=== PATIENT | male | born 1975 | race Caucasian/White ===

== ENCOUNTER 2018-03-21 21:43 | Emergency (ER) | payer OTHER ==
[2018-03-21] MEDS ORDERED: IBUPROFEN 600 MG TABLET (FP) PO ONE ×2 (21:45→21:56)
[2018-03-21 21:46] VITALS: BP 125/66; PULSE 102; TEMP 99.8; BMI 26.2
--- NOTE | 2018-03-21 21:48 | PDOC ---
Rapid Medical Evaluation Chief Complaint: Cold Symptoms Time Seen by Provider: 03/21/18 21:43 Medical Evaluation: Allergies Allergy/AdvReac Type Severity Reaction Status Date / Time iodine [Iodine] Allergy Swelling Verified 01/08/13 11:43 Penicillins Allergy Hives Verified 01/08/13 11:43 03/21/18 21:44 43 year old male c/o nasal congestions, chills, bodyache and feels feverish. c/ o throat pain PE: patient alert ox3. mild erythema A: rapid strep ibuprofen patient to fast track for further management of care. Discharge Disposition - Diagnosis Throat pain in adult URI (upper respiratory infection) Qualifiers: URI type: unspecified URI Qualified Code(s): J06.9 - Acute upper respiratory infection, unspecified - Referrals - Patient Instructions - Post Discharge Activity
--- NOTE | 2018-03-21 22:07 | PDOC ---
History of Present Illness - General Chief Complaint: Cold Symptoms Stated Complaint: COLD SYMPTOMS Time Seen by Provider: 03/21/18 21:43 History Source: Patient Exam Limitations: No Limitations - History of Present Illness Initial Comments: 03/21/18 22:03 HISTORY OF PRESENT ILLNESS: 43-year-old male with past medical history of depression and anxiety presents emergency Department with 4 days of subjective fevers, myalgias, nasal congestion, postnasal drip, intermittent headaches. Patient states symptoms got worse starting on 03/20. Patient denies chest pain, shortness of breath, cough, abdominal pain, nausea, vomiting. No recent travel or sick contacts. PAST MEDICAL HISTORY: Denies past medical history SURGICAL HISTORY: Denies ALLERGIES: No known drug allergies REVIEW OF SYSTEMS General/Constitutional: Endorses fever and chills. Denies weakness, weight change. HEENT: Denies change in vision. Denies ear pain or discharge. Denies sore throat. Cardiovascular: Denies chest pain or shortness of breath. Respiratory: Denies cough, wheezing, or hemoptysis. Gastrointestinal: Denies nausea, vomiting, diarrhea or constipation. Denies rectal bleeding. Genitourinary: Denies dysuria, frequency, or change in urination. Musculoskeletal: Reports muscleaches. Denies neck or back pain. Skin and breasts: Denies rash or easy bruising. Neurologic: Intermittent global headache. Denies vertigo, loss of consciousness , or loss of sensation. Psychiatric: Denies depression or anxiety. Endocrine: Denies increased thirst. Denies abnormal weight change. Hematologic/Lymphatic: Denies anemia, easy bleeding, or history of blood clots. Allergic/Immunologic: Denies hives or skin allergy. Denies latex allergy. PHYSICAL EXAM General Appearance: Well-appearing, appropriately dressed. No apparent distress , no intoxication. HEENT: EOMI, PERRLA, normal ENT inspection, normal voice. No conjunctival pallor. No photophobia, scleral icterus. Cobblestoning in the posterior oropharynx. No tonsillar erythema present. no exudates present. TMs with retractions noted bilaterally Neck: Supple. Trachea midline. No tenderness, rigidity, carotid bruit, stridor , lymphadenopathy, or thyromegaly. Respiratory/Chest: Lungs CTAB. No shortness of breath, chest tenderness, respiratory distress, accessory muscle use. No crackles, rales, rhonchi, stridor , wheezing, dullness Cardiovascular: RRR. S1, S2. No JVD, murmur, bradycardia, tachycardia. Vascular Pulses: Dorsalis-Pedis (R): 2+, Dorsalis-Pedis (L): 2+ Gastrointestinal/Abdominal: Normal bowel sounds. Abdomen soft, non-distended. No tenderness or rebound tenderness. No organomegaly, pulsatile mass, guarding, hernia, hepatomegaly, splenomegaly. Lymphatic: No adenopathy, tenderness. Musculoskeletal/Extremities: Normal inspection. FROM of all extremities, normal capillary refill. Pelvis Stable. No CVA tenderness. No tenderness to extremities, pedal edema, swelling, erythema or deformity. Integumentary: Appropriate color, dry, warm. No cyanosis, erythema, jaundice or rash Neurologic: venetian blind mechanic II-XII intact. Fully oriented, alert. Appropriate mood/affect. Motor strength 5/5. No appreciable EOM palsy, facial droop or sensory deficit. Past History - Past Medical History Allergies/Adverse Reactions: Allergies Allergy/AdvReac Type Severity Reaction Status Date / Time iodine [Iodine] Allergy Swelling Verified 03/21/18 21:46 Penicillins Allergy Hives Verified 03/21/18 21:46 Home Medications: Ambulatory Orders No Home Medications 0 dose .ROUTE UTDICT 01/08/13 COPD: No - Surgical History Appendectomy: Yes - Suicide/Smoking/Psychosocial Hx Smoking Status: No Smoking History: Never smoked Number of Cigarettes Smoked Daily: 0 *Physical Exam - Vital Signs Last Vital Signs Temp Pulse Resp BP Pulse Ox 99.8 F H 102 H 18 125/66 95 03/21/18 21:44 03/21/18 21:44 03/21/18 21:44 03/21/18 21:44 03/21/18 21:44 ED Treatment Course - Medications Given in the ED: ED Medications Discontinued Medications Generic Name Dose Route Start Last Admin Trade Name Freq PRN Reason Stop Dose Admin Ibuprofen 600 mg 03/21/18 21:45 03/21/18 21:57 Motrin - PO 03/21/18 21:46 600 mg ONCE ONE Administration Medical Decision Making - Medical Decision Making 03/21/18 22:06 A/P: 43-year-old male with 4 days of upper respiratory type symptoms TMs with retractions bilaterally Cobblestoning in the posterior oropharynx No sinus tenderness No cervical lymphadenopathy noted Lungs clear to auscultation bilaterally Patient symptoms consistent with an upper respiratory infection but given absence of cough I will send a rapid strep test to evaluate for bacterial etiology. 03/21/18 22:23 Rapid strep testing is negative. I will discharge the patient home with symptomatic treatment. I discussed the physical exam findings, ancillary test results and final diagnoses with the patient. I answered all of the patient's questions. The patient was satisfied with the care received and felt comfortable with the discharge plan and treatment plan. The patient will call their primary care physician within 24 hours to arrange follow-up and will return to the Emergency Department with any new, persistent or worsening symptoms. *DC/Admit/Observation/Transfer Diagnosis at time of Disposition: URI (upper respiratory infection) Qualifiers: URI type: unspecified URI Qualified Code(s): J06.9 - Acute upper respiratory infection, unspecified - Discharge Dispostion Disposition: HOME Condition at time of disposition: Stable Decision to Admit order: No - Referrals Referrals: Tom Meyers MD [Primary Care Provider] - - Patient Instructions Printed Discharge Instructions: DI for Viral Upper Respiratory Infection -- Adult Additional Instructions: Rest, drink lots of fluids: Teas, water, soups, Pedialyte Saltwater gargles Steamy showers/seem to face break up mucus Avoid contact with others until fevers and cough resolved Lots of handwashing and good hygiene Continue [id number] medications for symptomatic relief Tylenol or Motrin for fever and pain Followup with private physician in one to 2 days as needed Return to emergency department for worsened symptoms, fevers, dehydration - Post Discharge Activity Forms/Work/School Notes: Back to Work
== END 2018-03-21 22:28 | disposition home or self-care (01) ==
LOC: JERFT 21:43
DX: J06.9 Acute upper respiratory infection, unspecified (principal); F41.8 Other specified anxiety disorders
CPT/HCPCS: 87070; 87430; 99281-25

== ENCOUNTER 2018-06-15 21:43 | Emergency (ER) | payer OTHER ==
[2018-06-15 22:00] VITALS: BP 124/75; PULSE 97; TEMP 99.8; BMI 25.8
--- NOTE | 2018-06-15 23:51 | PDOC ---
History of Present Illness - General Chief Complaint: Cold Symptoms Stated Complaint: FLU SYMPTOMS Time Seen by Provider: 06/15/18 22:55 History Source: Patient Exam Limitations: No Limitations - History of Present Illness Initial Comments: 06/15/18 23:48 Patient is a 43 year old male history of depression, anxiety, appendectomy here with complaints of URI symptoms which started 3 days ago. Patient states he had like cold symptoms initally but today symptoms worsened. Now feels malaise, body ache, cough, chest burning and forehead feeling hot. Did not obtain shot this year. PMD: Dr. Jeffries PMHX: as above PSOCHx: neg cig, etoh, durgs ALL: PCN, Iodine. GENERAL/CONSTITUTIONAL: (+) fever or chills. (+) weakness. No weight change.] HEAD, EYES, EARS, NOSE AND THROAT: [No change in vision. No ear pain or discharge. (+) sore throat.] CARDIOVASCULAR: [No chest pain or shortness of breath.] RESPIRATORY: (+) cough, wheezing, or hemoptysis.] GASTROINTESTINAL: [No nausea, vomiting, diarrhea or constipation. No rectal bleeding.] GENITOURINARY: [No dysuria, frequency, or change in urination.] MUSCULOSKELETAL: (+) joint or muscle pain. No neck or back pain.] SKIN AND BREASTS: [No rash or easy bruising.] NEUROLOGIC: [No headache, vertigo, loss of consciousness, or loss of sensation.] PSYCHIATRIC: [No depression or anxiety.] ENDOCRINE: [No increased thirst. No abnormal weight change.] HEMATOLOGIC/LYMPHATIC: [No anemia, easy bleeding, or history of blood clots.] ALLERGIC/IMMUNOLOGIC: [No hives or skin allergy. No latex allergy.] GENERAL: [The patient is awake, alert, and fully oriented, in mild distress.] HEAD: [Normal with no signs of trauma.] EYES: [Pupils equal, round and reactive to light, extraocular movements intact, sclera anicteric, conjunctiva clear.] ENT: [Ears normal, nares patent, oropharynx clear without exudates. Moist mucous membranes.] NECK: [Normal range of motion, supple without lymphadenopathy, JVD, or masses.] LUNGS: [Breath sounds equal, clear to auscultation bilaterally. No wheezes, and no crackles.] HEART: [Regular rate and rhythm, normal S1 and S2 without murmur, rub.] ABDOMEN: [Soft, nontender, normoactive bowel sounds. No guarding, no rebound. No masses.] EXTREMITIES: [Normal range of motion, no edema. No clubbing or cyanosis. No cords, erythema, or tenderness.] NEUROLOGICAL: [Cranial nerves II through XII grossly intact. Normal speech, normal gait.] PSYCH: [Normal mood, normal affect.] SKIN: [Warm, Dry, normal turgor, no rashes or lesions noted.] Past History - Past Medical History Allergies/Adverse Reactions: Allergies Allergy/AdvReac Type Severity Reaction Status Date / Time iodine [Iodine] Allergy Swelling Verified 06/15/18 22:00 Penicillins Allergy Hives Verified 06/15/18 22:00 Home Medications: Ambulatory Orders No Home Medications 0 dose .ROUTE UTDICT 01/08/13 Ibuprofen [Motrin -] 600 mg PO QID #120 tablet 06/16/18 Oseltamivir Phosphate [Tamiflu] 75 mg PO BID #9 capsule 06/16/18 COPD: No - Surgical History Appendectomy: Yes - Suicide/Smoking/Psychosocial Hx Smoking Status: No Smoking History: Never smoked Have you smoked in the past 12 months: No Number of Cigarettes Smoked Daily: 0 Information on smoking cessation initiated: No Hx Alcohol Use: No Drug/Substance Use Hx: No *Physical Exam - Vital Signs Last Vital Signs Temp Pulse Resp BP Pulse Ox 99.8 F H 97 H 16 124/75 100 06/15/18 21:58 06/15/18 21:58 06/15/18 21:58 06/15/18 21:58 06/15/18 21:58 Moderate Sedation - Procedure Monitoring Vital Signs: Procedure Monitoring Vital Signs Temperature 99.8 F H 06/15/18 21:58 Pulse Rate 97 H 06/15/18 21:58 Respiratory Rate 16 06/15/18 21:58 Blood Pressure 124/75 06/15/18 21:58 O2 Sat by Pulse Oximetry (%) 100 06/15/18 21:58 Medical Decision Making - Medical Decision Making 06/15/18 23:48 Patient is a 43 year old male history of depression, anxiety, appendectomy here with complaints of URI symptoms which started 3 days ago. Patient states he had like cold symptoms initally but today symptoms worsened. Now feels malaise, body ache, cough, chest burning and forehead feeling hot. Did not obtain shot this year. Patient symptoms consistent with flulike illness we'll treat symptomatically. Chest x-ray rule out pneumonia. Flu swab Chest x-ray negative Laboratory Tests 06/15/18 23:10 Influenza A (Rapid) Positive A Influenza B (Rapid) Negative I discussed the physical exam findings, ancillary test results and final diagnoses with the patient. I answered all of the patient's questions. The patient was satisfied with the care received and felt comfortable with the discharge plan and treatment plan. The Patient agrees to follow up with the primary care physician within 24-72 hours. *DC/Admit/Observation/Transfer Diagnosis at time of Disposition: Influenza A - Discharge Dispostion Disposition: HOME Condition at time of disposition: Stable - Prescriptions Prescriptions: Ibuprofen [Motrin -] 600 mg PO QID #120 tablet Oseltamivir Phosphate [Tamiflu] 75 mg PO BID #9 capsule - Referrals Referrals: Tom Meyers MD [Primary Care Provider] - - Patient Instructions Printed Discharge Instructions: DI for Influenza -- Adult - Post Discharge Activity Forms/Work/School Notes: Back to Work
[2018-06-16] MEDS ORDERED: OSELTAMIVIR PHOSPHATE 75 MG CAPSULE PO ONE (00:09)
[2018-06-16] MEDS ORDERED: OSELTAMIVIR PHOSPHATE 75 MG CAPSULE ONE (00:13)
== END 2018-06-16 00:32 | disposition home or self-care (01) ==
LOC: JER 21:43 → JERFT 21:43 → JER 06-16 00:32
DX: J09.X2 Influenza due to identified novel influenza A virus with other respiratory manifestations (principal)
CPT/HCPCS: 71046-TC-FY; 87804; 99282-25

== ENCOUNTER 2018-06-22 16:13 | Emergency (ER) | payer OTHER ==
[2018-06-22 16:17] VITALS: BP 106/78; PULSE 100; TEMP 98.8; BMI 25.8
--- NOTE | 2018-06-22 17:05 | PDOC ---
History of Present Illness - General Chief Complaint: Respiratory Stated Complaint: COLD SYMPTOMS/URINATING BLOOD Time Seen by Provider: 06/22/18 16:46 History Source: Patient Exam Limitations: Clinical Condition - History of Present Illness Initial Comments: 06/22/18 16:59 Patient with history of anxiety and depression present with complaint of over one-week history of URI symptoms which improved and started again 2 days ago. Patient also reported 2 day history of blood and urine which has mildly improved today. Patient was seen over week ago URI symptoms and tested positive for influenza a. Patient was discharged home on Tamiflu which reported help with his symptoms but now have cough and runny nose and nasal congestion. Patient reported urinary frequency, burning with urination and bloody urine for the past 2 days. Patient denies fever, chills or back pains. Patient denies nausea or vomiting Timing/Duration: other (2 days) Past History - Past Medical History Allergies/Adverse Reactions: Allergies Allergy/AdvReac Type Severity Reaction Status Date / Time iodine [Iodine] Allergy Swelling Verified 06/15/18 22:00 Penicillins Allergy Hives Verified 06/22/18 16:17 Home Medications: Ambulatory Orders Benzonatate [Tessalon Pearls -] 100 mg PO TID PRN #21 capsule 06/22/18 Ciprofloxacin HCl [Cipro] 500 mg PO BID 5 Days #10 tablet 06/22/18 Ipratropium [place] 2 spray NS BID PRN #1 spray 06/22/18 Loratadine 10 mg PO DAILY #10 capsule 06/22/18 Phenazopyridine HCl [Pyridium -] 100 mg PO TID 2 Days #6 tablet 06/22/18 COPD: No - Surgical History Appendectomy: Yes - Immunization History Immunization Up to Date: Yes - Suicide/Smoking/Psychosocial Hx Smoking Status: No Smoking History: Never smoked Have you smoked in the past 12 months: No Number of Cigarettes Smoked Daily: 0 Hx Alcohol Use: No Drug/Substance Use Hx: No Review of Systems - Review of Systems Able to Perform ROS?: Yes Is the patient limited Moldovan proficient: No Constitutional: No: Chills, Fever, Malaise HEENTM: Yes: Symptoms Reported, See HPI, Nose Congestion. No: Eye Pain, Blurred Vision, Tearing, Recent change in vision, Double Vision, Cataracts, Ear Pain, Ocular Prothesis, Ear Discharge, Nose Pain, Tinnitus, Nose Bleeding, Hearing Loss, Throat Pain, Throat Swelling, Mouth Pain, Dental Problems, Difficulty Swallowing, Mouth Swelling, Other Respiratory: Yes: Symptoms reported, See HPI, Cough. No: Orthopnea, Shortness of Breath, SOB with Exertion, SOB at Rest, Stridor, Wheezing, Productive cough, Hemoptysis, Other Cardiac (ROS): No: Symptoms Reported, See HPI, Chest Pain, Edema, Irregular Heart Rate, Lightheadedness, Palpitations, Syncope, Chest Tightness, Other ABD/GI: No: Constipated, Diarrhea, Nausea, Vomiting : Yes: See HPI, Burning, Dysuria, Frequency, Hematuria, Urgency. No: Discharge, Testicular Pain Musculoskeletal: No: Back Pain All Other Systems: Reviewed and Negative *Physical Exam - Vital Signs Last Vital Signs Temp Pulse Resp BP Pulse Ox 98.8 F 100 H 18 106/78 99 06/22/18 16:14 06/22/18 16:14 06/22/18 16:14 06/22/18 16:14 06/22/18 16:14 - Physical Exam Comments: 06/22/18 17:03 GENERAL: Well developed, well nourished. Awake and alert. No acute distress. HEENT: Normocephalic, atraumatic. PERRLA, EOMI. No conjunctival pallor. Sclera are non-icteric. Moist mucous membranes. Oropharynx is clear. NECK: Supple. Full ROM. CARDIOVASCULAR: Regular rate and rhythm. No murmurs, rubs, or gallops. Distal pulses are 2+ and symmetric. PULMONARY: No evidence of respiratory distress. Lungs clear to auscultation bilaterally. No wheezing, rales or rhonchi. ABDOMINAL: Soft. Non-tender. Non-distended. No rebound or guarding. No organomegaly. Normoactive bowel sounds. MUSCULOSKELETAL Normal range of motion at all joints. EXTREMITIES: No cyanosis. No clubbing. No edema. SKIN: Warm and dry. Normal capillary refill. No rashes. No jaundice. NEUROLOGICAL: Alert, awake, appropriate. Gait is normal without ataxia. PSYCHIATRIC: Cooperative. Good eye contact. Appropriate mood General Appearance: Yes: Nourished, Appropriately Dressed. No: Apparent Distress Moderate Sedation - Procedure Monitoring Vital Signs: Procedure Monitoring Vital Signs Temperature 98.8 F 01/13/19 16:14 Pulse Rate 100 H 06/22/18 16:14 Respiratory Rate 18 06/22/18 16:14 Blood Pressure 106/78 06/22/18 16:14 O2 Sat by Pulse Oximetry (%) 99 06/22/18 16:14 Medical Decision Making - Medical Decision Making 06/22/18 17:03 Patient with no significant past medical history present with complaint of 2 day history of hematuria, urinary frequency and burning with urination and patient also reported history of URI symptoms which started a week ago and improved 4 days ago and started again 2 days ago. Lungs clear to auscultation bilateral on exam with no respiratory distress. Normal cardiac exam. No abdominal tenderness on exam. UA, urine culture and urine GC tests ordered. Treat based on UA results 06/22/18 17:36 UA shows leukocytes with WBC and hematuria. Patient will be treated for cystitis with cipro Abx and pyridium and tessalon perles and nasal spray for URI symptoms *DC/Admit/Observation/Transfer Diagnosis at time of Disposition: URI (upper respiratory infection) Qualifiers: URI type: unspecified URI Qualified Code(s): J06.9 - Acute upper respiratory infection, unspecified UTI (urinary tract infection) Qualifiers: Urinary tract infection type: acute cystitis Hematuria presence: with hematuria Qualified Code(s): N30.01 - Acute cystitis with hematuria Hematuria Qualifiers: Hematuria type: unspecified type Qualified Code(s): R31.9 - Hematuria, unspecified - Discharge Dispostion Disposition: HOME Condition at time of disposition: Stable Decision to Admit order: No - Prescriptions Prescriptions: Benzonatate [Tessalon Pearls -] 100 mg PO TID PRN #21 capsule PRN Reason: Cough Ciprofloxacin HCl [Cipro] 500 mg PO BID 5 Days #10 tablet Ipratropium [place] 2 spray NS BID PRN #1 spray PRN Reason: nasal congestion Loratadine 10 mg PO DAILY #10 capsule Phenazopyridine HCl [Pyridium -] 100 mg PO TID 2 Days #6 tablet - Referrals Referrals: Tom Meyers MD [Primary Care Provider] - Uzair Harrell MD [Staff Physician] - - Patient Instructions Printed Discharge Instructions: DI for Urinary Tract Infection (UTI) Additional Instructions: Take medications as prescribed. Increase fluid intake. Follow-up referred neurology if symptoms persist for more than 4 days. - Post Discharge Activity
[2018-06-22 17:23] LABS: URINE APPEARANCE SLCLOUDY; URINE BILIRUBIN NEGATIVE (<2.0 mg/dL); URINE COLOR DKYELLOW; URINE GLUCOSE (UA) NEGATIVE (NEGATIVE); URINE KETONE NEGATIVE (NEGATIVE); URINE LEUK ESTERASE 3+ (NEGATIVE); URINE NITRITE NEGATIVE (NEGATIVE); URINE PROTEIN 2+ (NEGATIVE)
[2018-06-22 17:29] LABS: URINE BACTERIA RARE /hpf (NONE SEEN); URINE MUCUS RARE
== END 2018-06-22 17:36 | disposition home or self-care (01) ==
LOC: JERFT 16:13
DX: N30.01 Acute cystitis with hematuria (principal); J06.9 Acute upper respiratory infection, unspecified
CPT/HCPCS: 36415; 81003; 81015; 87086; 87186; 87491; 87591; 99281-25